=== PATIENT | male | born 1955 | race Asian ===

== ENCOUNTER 2019-04-20 17:20 | Emergency (ER) | payer MEDICARE, OTHER ==
[~2019-04-20] VITALS: Ht 170.2 cm; Wt 70.5 kg
[2019-04-20 17:20] VITALS: BP 157/98
[2019-04-20] MEDS ORDERED: AMLO5TAB9 PO (17:27)
[2019-04-20] MEDS ORDERED: LISI-661 PO (17:27)
== END 2019-04-20 18:12 | disposition home or self-care (01) ==
LOC: EDBD 17:21 → EMS 17:21
DX: B02.9 Zoster without complications (principal); I10 Essential (primary) hypertension; Z79.899 Other long term (current) drug therapy